=== PATIENT | female | born 1975 | race Caucasian/White ===

== ENCOUNTER 2022-10-09 20:11 | Emergency (ER) | payer MEDICAID ==
[~2022-10-09] VITALS: Ht 167.6 cm; Wt 66.4 kg
[2022-10-09 20:17] VITALS: BP 125/82
[2022-10-09] MEDS ORDERED: cefuroxime axetil 250mg tablet PO ONE (21:30)
[2022-10-09] MEDS ORDERED: CEFU500T66 PO (21:49)
== END 2022-10-09 22:13 | disposition home or self-care (01) ==
LOC: ER 20:12
DX: H65.02 Acute serous otitis media, left ear (principal); Z88.0 Allergy status to penicillin; Z88.1 Allergy status to other antibiotic agents; Z88.5 Allergy status to narcotic agent
CPT/HCPCS: 99283

== ENCOUNTER 2023-10-17 14:52 | Outpatient (CLI) | payer MEDICAID ==
[~2023-10-17 14:52] MED LIST: CEFU500T66 PO
== END 2023-10-17 23:59 | disposition home or self-care (01) ==
LOC: RAD 14:52
PROVIDERS: ATTEND Nurse Practitioner Family
DX: H53.9 Unspecified visual disturbance (principal)
CPT/HCPCS: 70450

== ENCOUNTER 2023-11-07 10:40 | Emergency (ER) | payer MEDICAID ==
[~2023-11-07] VITALS: Ht 170.2 cm; Wt 68.2 kg
[2023-11-07 11:15] VITALS: BP 110/77; PULSE 76; RESP 14; TEMP 98.6; O2SAT 96
[2023-11-07] MEDS ORDERED: FLUT9.9S BOTHNARES (13:15)
[2023-11-07] MEDS ORDERED: CLIN300C54 PO (13:15)
[2023-11-07] MEDS ORDERED: PRED10TA23 PO (13:15)
[2023-11-07] MEDS ORDERED: TRIA15CR62 TOP (13:15)
[2023-11-07] MEDS: dexamethasone sod phosphate 10mg/ml inj PO STA (13:21)
== END 2023-11-07 13:23 | disposition home or self-care (01) ==
LOC: ER 10:40
DX: J32.9 Chronic sinusitis, unspecified (principal); L23.7 Allergic contact dermatitis due to plants, except food; Z90.49 Acquired absence of other specified parts of digestive tract; Z88.0 Allergy status to penicillin; Z88.8 Allergy status to other drugs, medicaments and biological substances; Z88.5 Allergy status to narcotic agent; Z79.899 Other long term (current) drug therapy; Z79.2 Long term (current) use of antibiotics
CPT/HCPCS: 99283; J1100